=== PATIENT | male | born 1995 | race Caucasian/White ===

== ENCOUNTER 2020-07-30 01:11 | Emergency (ER) | payer OTHER ==
[~2020-07-30] VITALS: Ht 154.9 cm; Wt 59.0 kg
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
[2020-07-30] MEDS ORDERED: TDAP [DIPH/PERTUSSIS/TET] 0.5 ML VIAL IM ONE ×2 (02:00→02:11)
--- NOTE | 2020-07-30 03:00 | NUR ---
PATIENT TAKEN TO CT.
[2020-07-30] MEDS ORDERED: LIDOCAINE 1%-EPI 1:100,000 20 ML VIAL ONE (03:28)
[2020-07-30] MEDS ORDERED: LIDOCAINE 1%-EPI 1:100,000 20 ML VIAL TP ONE (03:30)
[2020-07-30] MEDS ORDERED: HYDROCODONE/APAP 5/325MG TABLET PO ONE (04:00)
[2020-07-30] MEDS ORDERED: HYDROCODONE/APAP 5/325MG TABLET ONE (04:06)
--- NOTE | 2020-07-30 05:41 | NUR ---
Pt ok to discharge per Dr Acosta. Patient discharged to home in stable condition. Written and verbal after care instructions given. Patient verbalizes understanding of instruction.
[2020-07-30 05:43] VITALS: BP 126/74
== END 2020-07-30 05:44 | disposition home or self-care (01) ==
LOC: ER 01:21
DX: S01.81XA Laceration without foreign body of other part of head, initial encounter (principal); S91.311A Laceration without foreign body, right foot, initial encounter; S01.512A Laceration without foreign body of oral cavity, initial encounter; S90.511A Abrasion, right ankle, initial encounter; M25.531 Pain in right wrist; V49.59XA Passenger injured in collision with other motor vehicles in traffic accident, initial encounter; Y93.89 Activity, other specified; Y92.413 State road as the place of occurrence of the external cause; Y99.8 Other external cause status
CPT/HCPCS: 12002; 12011; 70450; 70486; 71045; 72125; 73090; 73110; 73130; 73610; 73630; 90471; 90715; 99285; J3490